=== PATIENT | male | born 1975 | race African-American/Black ===

== ENCOUNTER 2017-05-22 01:37 | Emergency (ER) | payer SELFPAY ==
[~2017-05-22] VITALS: Ht 185.4 cm; Wt 117.9 kg
[~2017-05-22 01:37] MED LIST: Aspirin PO; CARV12.5 PO; LISI10TA PO
[2017-05-22 02:01] VITALS: BP 198/126
[2017-05-22 02:10] LABS: BILIRUBIN,URINE NEGATIVE (NEG); GLUCOSE,URINE NEGATIVE (NEG); NITRITE,URINE NEGATIVE (NEG); PROTEIN,URINE NEGATIVE (NEG-TRACE); UROBILINOGEN,URINE 0.2 mg/dL (0.2 mg/dL)
[2017-05-22 02:15] LABS: BACTERIA,URINE 0 /HPF (0-FEW); RBC,URINE 0 /HPF (0-2); SQUAMOUS EPITHELIAL CELL,UR FEW /LPF
[2017-05-22] MEDS ORDERED: DOXY100C2 PO (02:15)
--- NOTE | 2017-05-22 02:15 | PHYS DOC ---
Past Medical History Past Medical History: Hypertension Past Surgical History: No Surgical History Additional Information: non smoker Alcohol Use: Occasionally Drug Use: None Adult General Chief Complaint Chief Complaint: SEXUALLY TRANSMITTED DISEASE HPI HPI Patient is a 42 year old male who presents with an surgeon about sexually transmitted infection. He had sex on Sunday night and the condom broke. He left work tonight if he was worried he may have contracted a sexually transmitted disease. Does not have any penile sores or lesions. No discharge or drainage. No dysuria. Unknown if partner had a sexual transmitted infection or not. No testicular pain or swelling. Review of Systems Review of Systems Constitutional: Denies fever or chills : Denies dysuria or hematuria Integument: Denies rash or skin lesions Allergies Allergies Allergies Coded Allergies Type Severity Reaction Last Updated Verified No Known Drug Allergies 09/15/13 No Physical Exam Physical Exam Constitutional: Well developed, well nourished, no acute distress, non-toxic appearance. Cardiovascular:Heart rate regular rhythm, no murmur Lungs & Thorax: Bilateral breath sounds clear to auscultation Abdomen: Bowel sounds normal, soft, no tenderness, no masses, no pulsatile masses. Skin: Warm, dry, no erythema, no rash. Current Patient Data Vital Signs Vital Signs Date Time Temp Pulse Resp B/P (MAP) Pulse Ox O2 Delivery O2 Flow Rate FiO2 05/22/17 02:01 98.6 60 16 98 Room Air 98.6 Course & Med Decision Making Course & Med Decision Making Patient desires to be treated. We'll dose him with Zithromax here by mouth and a prescription for doxycycline. He is to follow-up on the urine GC and chlamydia culture results. Dragon Disclaimer Jeffon Disclaimer This electronic medical record was generated, in whole or in part, using a voice recognition dictation system. Departure Departure Impression: Primary Impression: Sexually transmitted disease exposure Disposition: HOME, SELF-CARE Condition: GOOD Referrals: NO PCP (PCP) Patient Instructions: Sexually Transmitted Disease Additional Instructions: You have cultures pending on your urine that you need to obtain the results in 7 -10 days from medical records Scripts Doxycycline Hyclate (DOXYCYCLINE HYCLATE) 100 Mg Capsule 1 CAP PO BID, #14 CAP Prov: AMY HAZEL MD 05/22/17 AMY HAZEL MD May 22, 2017 02:15
[2017-05-22] MEDS ORDERED: AZITHROMYCIN 250 MG TABLET. PO ONE (02:30)
== END 2017-05-22 02:26 | disposition home or self-care (01) ==
LOC: ER 01:37
DX: Z20.2 Contact with and (suspected) exposure to infections with a predominantly sexual mode of transmission (principal)
CPT/HCPCS: 81001; 87086; 87491; 87591; 99284; Q0144

== ENCOUNTER 2021-04-17 12:51 | Emergency (ER) | payer SELFPAY ==
[~2021-04-17 12:51] MED LIST changes: +DEXTROSE 50% 25 GM / 50ML DISP.SYRIN. IV ONE; +DOXY100C2 PO; +EPINEPHrine SYRINGE 1 MG/10 ML SYRINGE ONE; +SODIUM BICARB ADULT 8.4% 50 MEQ/50 ML DISP.SYRIN. ONE
--- NOTE | 2021-04-17 13:23 | PHYS DOC ---
Past Medical History Past Medical History: Hypertension Past Surgical History: No Surgical History Smoking Status: Never Smoker Alcohol Use: Occasionally Drug Use: None General Adult EDM: Chief Complaint: cardiac arrest HPI: HPI: Patient is a 46 year old male who was found by his son sitting a recliner, hav ing a seizure, not responding about 50 minutes ago. His son called 911, the waxing machine operator instructed him to perform CPR and he did. EMS came , found him to be in VF. They shocked him 3 times, he went into Asystole. Patient was given 1 mg narcai, no response, was given a total of 5 mg epinephrine, inserted an LMA , a temporary airway. Patient was brought here emergently. Upon arrival to room, CPR was in progress, patient was comatose, in ASYSTOLE. Patient with grandmother he has a history of hypertension, he is on Norvasc, but sometime he missed some dose of his medication. His family reported that his grandmother due to brain aneurysm. Review of Systems: Review of Systems: Not able to obtain due to condition Heart Score: C/O Chest Pain: N/A Risk Factors: Risk Factors: DM, Current or recent (<one month) smoker, HTN, HLP, family history of CAD, obesity. Risk Scores: Score 0 - 3: 2.5% MACE over next 6 weeks - Discharge Home Score 4 - 6: 20.3% MACE over next 6 weeks - Admit for Clinical Observation Score 7 - 10: 72.7% MACE over next 6 weeks - Early Invasive Strategies Allergies: Allergies: Allergies Coded Allergies Type Severity Reaction Last Updated Verified No Known Drug Allergies 09/15/13 No Physical Exam: PE: Constitutional: Well developed, well nourished,comatose. HENT: Normocephalic, atraumatic, bilateral external ears normal, LMA airway in placet, nose normal. [] Eyes: pupils were fixed and dilated bilaterally, conjunctiva injected, exophthalmos bilaterally, no discharge. [] Neck:no crepitus, trachea midline. Cardiovascular:aystole. Lungs & Thorax: Bilateral breath sounds clear to auscultation with bagging. Abdomen: soft, no masses, no pulsatile masses. [] Skin: cold, dry, no erythema, no rash. [] Back: no injury Extremities: no injury. Neurologic:comatose. Psychologic: not able to obtain Current Patient Data: Labs: Laboratory Tests Test 04/17/21 13:04 Glucose (Fingerstick) 55 mg/dL (70-99) L EKG: EKG: [] Radiology/Procedures: Radiology/Procedures: [] Course & Med Decision Making: Course & Med Decision Making Pertinent Labs and Imaging studies reviewed. (See chart for details) Patient is a 46-year-old male who was brought here by EMS from home due to cardiac arrest after he was observed having a seizure activity. Patient has history hypertension, not noncompliant with medication, family history brain aneurysm,, suspected that patient may have ruptured AVM , causing seizure, having cardiac arrest. Patient was resuscitated per ACLS protocol, no ROSC, after long resuscitation effort, patient was pronounced by this physician at 1310. Dragon Disclaimer: Dragon Disclaimer: This electronic medical record was generated, in whole or in part, using a voice recognition dictation system. Departure Departure Impression: Primary Impression: Cardiac arrest Disposition: 20 Condition: Referrals: NO PCP (PCP) Intubation Procedure Intub Indication: Respiratory failure, CARDIAC ARREST Consent: Unable to give consent due to emergent nature. Medications Used: see nursing note Procedure: The patient was placed in the appropriate position. Intubation was performed BY THIS PHYSICIAN, USING GLIDESCOPE, CORD VISUALIZATION METHOD, ET TUBE # 7.5, SECURED 24 AT LIP [ET TUBE SIZE] endotracheal tube. Initial confirmation of placement included bilateral breath sounds, tube fogging, adequate chest rise, adequate pulse oximetry reading. Complications: none. YUKI BERGER DO Apr 17, 2021 13:23
== END 2021-04-17 17:13 ==
LOC: ER 12:51
DX: I46.9 Cardiac arrest, cause unspecified (principal); I10 Essential (primary) hypertension
CPT/HCPCS: 31500; 82962; 92950; J0171; J3490; 99285-25